=== PATIENT | male | born 1960 | race Caucasian/White ===

== ENCOUNTER 2016-10-29 01:19 | Emergency (ER) | payer OTHER ==
[~2016-10-29] VITALS: Ht 170.2 cm; Wt 113.4 kg
[~2016-10-29 01:19] MED LIST: HYDROCODONE-AP1 EAC6 PO; NOHOMEMEDICATIONS
== END 2016-10-29 04:51 | disposition home or self-care (01) ==
LOC: ER 01:19
DX: G89.29 Other chronic pain (principal); M25.551 Pain in right hip; I10 Essential (primary) hypertension; K74.69 Other cirrhosis of liver; J44.9 Chronic obstructive pulmonary disease, unspecified; Z88.5 Allergy status to narcotic agent; F17.210 Nicotine dependence, cigarettes, uncomplicated; F10.99 Alcohol use, unspecified with unspecified alcohol-induced disorder

== ENCOUNTER 2021-05-15 01:02 | Inpatient (IN) | payer OTHER ==
[2021-05-15] VITALS (8 sets, daily range): BP systolic 15–184; BP diastolic 64–110
[~2021-05-15] VITALS: Ht 172.7 cm; Wt 88.5 kg
--- NOTE | ~2021-05-15 | EMS ---
[address] [address] EMS Patient Care Report Name: JAVI REYES Room #: 201-P ADM IN M.R.#: [id number] Admission: 05/15/21 Attend Phys: Ernestina Alexander MD Discharge: Date of : 64 Report #: [id number] THIS REPORT FOR: //name// Report Transmitted: 05/15/2021 04:50 EMS Care Summary [place], [place]/[facility] Incident [id number] @ 05/15/2021 00:23 Incident Location [address] [place] [id number] Patient AMY CALDWELL Male, 60 Years 1960 Patient Address [address] [place] [address] Patient History Other,Congestive Heart Failure (CHF),Chronic Obstructive Pulmonary Disease (COPD), Patient Allergies No known allergies, Patient Medications None Reported, Chief Complaint SHORTNESS OF BREATH Disposition Transported Lights/[place] Dispatch Reason EMS Special Service Transported To [place] [facility] Narrative PT SITTING ON PORCH WITH P42 ALERT ORIENTED COMPLANING OF SHORTNESS OF BREATH FOR THE LAST 2 WEEKS, PROGRESSSIELY GETTING WORSE. PT ALSO COMPLAINING OF ABDOMINAL DISTENSION ET RIGIDITY WHICH HAS ALSO BEEN GOING ON ET GETTING [address] [address] EMS Patient Care Report Name: JAVI REYES Room #: 201-P [facility] IN Emi#: [id number] Admission: 05/15/21 Attend Phys: Ernestina Alexander MD Discharge: Date of : 64 Report #: [id number] PROGRESSIVELY WORSE IN THE LAST TWO WEEKS. PT STATES TWO WEEKS AGO HE STOPPED TAKING ALL OF HIS MEDICINES. PT UNABLE TO SAY WHY HE STOPPED ALL HIS MEDS. PT SPEAKING IN 2-3 WORD DYSPNEA. PT LUNGS WHEEZYING. A&A TX ADMINISTERED. O2 SATS IMPROVE WITH OXYGEN VIA TREATEMT. IV ESTABLISHED ENROUTE. ON ARRIVAL CARE ET REPORT TO RN. Initial Vitals @00:54P: 120,R: 22,BP: 200/100,Pain: 6/10,GCS: 15,SpO2: 90,Revised Trauma: 12, @00:55P: 124,R: 24,BP: 224/92,Pain: 6/10,GCS: 15,SpO2: 100,Revised Trauma: 12, Assessments @00:35MENTAL:No Abnormalities,SKIN:No Abnormalities,HEENT:Head/Face: No Abnormalities,Eyes: No Abnormalities,Neck/Airway: No Abnormalities,LUNG SOUNDS:Right Lower: Distension,Right Upper: Distension,Left Upper: Distension,Left Upper: Other,Left Lower: Other,Right Upper: Other,Left Lower: Distension,Right Lower: Other,ABDOMEN:Right Lower: Distension,Right Upper: Distension,Left Upper: Distension,Left Upper: Other,Left Lower: Other,Right Upper: Other,Left Lower: Distension,Right Lower: Other,PELVIS//GI:No Abnormalities,EXTREMITIES:Left Leg: Edema,Right Leg: Edema,Left Arm: No Abnormalities,Right Arm: No Abnormalities,PULSE:NEURO:No Abnormalities, Impression Chronic Obstructive Pulmonary Disease (COPD) Timeline 00:22,Call Received 00:22,Dispatch Notified 00:23,Dispatched 00:25,En Route 00:34,On Scene 00:35,At Patient 00:45,Depart Scene 00:54,BP: 200/100 M,PULSE: 120,RR: 22 R,SPO2: 90 Ox,ETCO2: ,BG: ,PAIN: 6,GCS: 15, 00:55,BP: 224/92 M,PULSE: 124,RR: 24 R,SPO2: 100 Ox,ETCO2: ,BG: ,PAIN: 6,GCS: 15, 00:56,At Destination 01:18,Call Closed Disclaimer v1.1 Copyright 2020 [employer] This EMS Care Summary contains data elements from the applicable legal record (which may be displayed differently). It is designed to provide pertinent information for the following purposes: continuity of care, clinical quality, and state data reporting. The complete legal record [place] [address] EMS Patient Care Report Name: AMYJAVI PRESLEYHRIE Room #: 201-P ADM IN M.R.#: [id number] Admission: 05/15/21 Attend Phys: Ernestina Alexander MD Discharge: Date of : 64 Report #: [id number] and administrators of the receiving hospital in [facility]'s Patient Tracker. All data is provided "as is."
[2021-05-15 01:31] LABS: ABSOLUTE NEUTROPHILS 4.4 thou/uL (1.4-8.2); BASOPHILS 1.1 % (0.0-2.0); EOSINOPHILS 2.5 % (0.0-3.0); HEMATOCRIT 30.5 % (42.0-52.0); HEMOGLOBIN 9.2 gm/dL (14.0-18.0); LYMPHOCYTES 7.8 % (24.0-44.0); MCH 21.3 pg (26.0-34.0); MCHC 30.3 g/dL (28.0-37.0); MCV 70.3 fL (80.0-100.0); MONOCYTES 13.4 % (1.0-8.0); PLATELET COUNT 308 thou/uL (150-400); POLYS 75.2 % (36.0-66.0); RBC 4.34 mil/uL (4.50-6.00); RDW 21.1 % (10.5-14.5); WBC 5.9 thou/uL (4.0-11.0)
[2021-05-15 01:34] LABS: CALCIUM 8.4 mg/dL (8.5-10.1); CREATININE 0.9 mg/dL (0.7-1.3); POTASSIUM 3.5 mmol/L (3.5-5.1)
[2021-05-15 01:44] LABS: ALBUMIN 2.6 g/dL (3.4-5.0); TOTAL BILIRUBIN 0.5 mg/dL (0.2-1.0); TOTAL PROTEIN 7.3 g/dL (6.4-8.2)
[2021-05-15 01:54] LABS: URINE BILIRUBIN NEGATIVE (Negative); URINE BLOOD TRACE (Negative); URINE CLARITY CLEAR; URINE COLOR YELLOW; URINE GLUCOSE-RANDOM* NEGATIVE (Negative); URINE KETONES NEGATIVE (Negative); URINE LEUKOCYTES-REFLEX NEGATIVE (Negative); URINE NITRITE-REFLEX NEGATIVE (Negative); URINE PROTEIN (DIPSTICK) 3+ (Negative); URINE SPECIFIC GRAVITY 1.025 (1.005-1.035); URINE UROBILINOGEN 0.2 E.U./dl (0.2-1.0)
[2021-05-15] MEDS ORDERED: IPRAT-ALBUT 0.5-3 ML INH (02:16)
[2021-05-15] MEDS ORDERED: CARVEDILOL12.5 MG PO (02:17)
[2021-05-15] MEDS ORDERED: PROAIR HFA8.5 GM INH (02:17)
[2021-05-15] MEDS ORDERED: GLIPIZIDE 10 MG10 MG PO (02:18)
[2021-05-15] MEDS ORDERED: LISINOPRIL10 MG PO (02:18)
[2021-05-15] MEDS ORDERED: PROTONIX40 M2 PO (02:19)
[2021-05-15] MEDS ORDERED: SPIRONOLACTONE100 M1 PO (02:19)
[2021-05-15] MEDS ORDERED: AMLODIPINE BESY10 MG PO (02:19)
[2021-05-15] MEDS ORDERED: LIPITOR 40 MG T40 M1 PO (02:19)
[2021-05-15] MEDS ORDERED: FUROSEMIDE 40 M40 M1 PO (02:19)
[2021-05-15] MEDS ORDERED: GABAPENTIN 100100 MG PO (02:19)
[2021-05-15 03:02] LABS: SQUAMOUS 4-10 Moderate /LPF (0-3)
[2021-05-15 03:03] LABS: BACTERIA-REFLEX 1-9 Few /HPF (None Seen); CELLULAR CASTS 0-3 Few /LPF (None Seen); CRYSTALS None Seen /LPF (None Seen); HYALINE CASTS 0-3 Few /LPF (None Seen); MUCUS 0-3 Light strn/LPF (None Seen); URINE RBC 1-2 Rare /HPF (NONE SEEN); URINE WBC-REFLEX None Seen /HPF (0-5)
[2021-05-15 04:44] LABS: BE(vivo) -3.2 mmol/L (-2 to +3); HCO3 21.9 mmol/L (22.0-26.0); PCO2 39.5 mmHg (35.0-45.0); PO2 133.8 mmHg (80.0-100.0); pH 7.361 (7.360-7.450); sO2 98.6 % (92.0-98.0)
--- NOTE | 2021-05-15 05:29 | NUR ---
Pt was an ER admit who presented with SOA, ascites and hypertenion. Pt is stable upon arrival to the floor. Admission assessment and documentation completed. Currently denies pain. Scheduled meds administered to pt. Patient reports last drink to be 05/14. Pt is stable and drowsy, alfaro in place. Continue to monitor. No further needs at this time.
[2021-05-15 06:38] LABS: INR 1.12; PROTIME 12.1 Seconds (10.5-12.1)
--- NOTE | 2021-05-15 07:18 | EKG ---
[address] [place] [address] ELECTROCARDIOGRAM REPORT Name: JAVI REYES Room #: 201-P ADM IN M.R.#: [id number] Admission: 05/15/21 Attend Phys: Ernestina Alexander MD Discharge: Date of : 64 Report #: [id number] [facility] ED Test Date: 2021-05-15 Test Time: 01:09:09 Pat Name: JAVI REYES Department: Room: 201 Gender: M Operations Plant Attendant: MPARK : 1960 Requested By: Zane Martinez Order Number: [id number] MD: Sebastian Carr Measurements Intervals [place] Rate: 119 P: 57 WY: 140 QRS: 59 QRSD: 99 T: 50 QT: 356 QTc: 501 Interpretive Statements Sinus tachycardia Probable left atrial enlargement Compared to ECG 01/31/2016 22:58:35 T-wave abnormality no longer present Possible ischemia no longer present Electronically Signed On 05-15-2021 7:17:43 CDT by Sebastian Carr [email or web address] <ELECTRONICALLY SIGNED> By: Sebastian Carr MD, [facility] 05/15/21 07 8 010 Sebastian Carr MD, FACC /EPI
--- NOTE | 2021-05-15 15:37 | 2DMMODE ---
[facility] [place] [address] 2 D/M-MODE ECHOCARDIOGRAM Name: JAVI REYES Room #: 201-P ADM IN M.R.#: [id number] Admission: 05/15/21 Attend Phys: Ernestina Alexander MD Discharge: Date of : 64 Report #: [id number] THIS REPORT FOR: cc: Mary Giron MD, Jinming MD Lundgren, Craig H. MD [facility] ~ APPROVED REPORT Study performed: 05/15/2021 14:19:21 EXAM: Comprehensive 2D, Doppler, and color-flow Echocardiogram Patient Location: Bedside Room #: 201 Status: routine BSA: 2.43 HR: 75 bpm BP: 176/91 mmHg Rhythm: NSR Other Information Study Quality: Good Indications Congestive Heart Failure COPD Diabetes Dyspnea Hypertension/HDD Morbid obesity 2D Dimensions RVDd: 45.88 mm IVSd: 15.79 (7-11mm) LVOT Diam: 24.49 (18-24mm) LVDd: 48.67 mm PWd: 14.60 (7-11mm) Ascending Ao: 28.78 (22-36mm) LVDs: 31.86 (25-40mm) Left Atrium: 38.70 (27-40mm) Aortic Root: 33.79 mm IVC: 23.00 mm Volumes Left Atrial Volume (Systole) Single Plane 4CH: 78.74 mL Single Plane 2CH: 106.27 mL LA ESV Index: 43.00 mL/m2 [facility] [address] [place] [address] 2 D/M-MODE ECHOCARDIOGRAM Name: JAVI REYES Room #: 201-P ADM IN M.R.#: [id number] Admission: 05/15/21 Attend Phys: Odalis Junior Discharge: Date of : 64 Report #: [id number] Aortic Valve AoV Peak Toy.: 1.75 m/s AO Peak Gr.: 12.27 mmHg LVOT Max P.13 mmHg LVOT Max V: 1.02 m/s ROMERO Vmax: 2.73 cm2 Mitral Valve E/A Ratio: 1.2 MV Decel. Time: 251.97 ms MV E Max Toy.: 1.26 m/s MV A Toy.: 1.09 m/s MV PHT: 73.07 ms IVRT: 110.73 ms Pulmonary Valve PV Peak Toy.: 1.15 m/s PV Peak Gr.: 5.30 mmHg Pulmonary Vein P Vein S: 0.62 m/s P Vein A: 0.25 m/s P Vein D: 0.60 m/s P Vein A Dur.: 87.7 msec P Vein S/D Ratio: 1.03 Tricuspid Valve TR Peak Toy.: 2.19 m/s TR Peak Gr.: 19.13 mmHg PA Pressure: 29.00 mmHg Left Ventricle The left ventricle is normal size. There is normal LV segmental wall motion. Mild concentric left ventricular hypertrophy. The left ventricular systolic function is normal. The left ventricular ejection fraction is within the normal range. LVEF is 60-65%. Moderate diastolic dysfunction Right Ventricle Right ventricle is dilated. The right ventricular systolic function is normal. Atria Left atrium is dilated. Right atrium is dilated. Aortic Valve The aortic valve is normal in structure. No aortic regurgitation is present. There is no aortic valvular stenosis. Mitral Valve [facility] [address] [place] [address] 2 D/M-MODE ECHOCARDIOGRAM Name: JAVI REYES Room #: 201-P ADM IN M.R.#: [id number] Admission: 05/15/21 Attend Phys: Odalis Junior Discharge: Date of : 64 Report #: [id number] The mitral valve is normal in structure. Mild mitral regurgitation. No evidence of mitral valve stenosis. Tricuspid Valve The tricuspid valve is normal in structure. Pulmonary artery systolic pressure could not be reliably ascertained There is trace tricuspid regurgitation. Pulmonic Valve The pulmonary valve is normal in structure. Trace to mild pulmonic regurgitation. Great Vessels The aortic root is normal in size. IVC is dilated and collapses >50% with inspiration. Pericardium There is no pericardial effusion. <Conclusion> The left ventricular systolic function is normal. There is normal LV segmental wall motion. Mild concentric left ventricular hypertrophy. LVEF is 60-65%. Moderate diastolic dysfunction The aortic valve is normal in structure. No aortic regurgitation or stenosis The mitral valve is normal in structure. Mild mitral regurgitation. Pulmonary artery pressure could not be reliably ascertained. No pericardial effusion <ELECTRONICALLY SIGNED> By: Duncan Rodriguez MD, FACC 05/15/21 1537 [id number] Duncan Rodriguez MD, FACC /INF
--- NOTE | 2021-05-15 18:00 | NUR ---
ASSESSMENT CHARTED - MEDS PER OCT - PT STARTED ON LASIX THIS SHIFT - ORDERED HYRALAZINE FOR ELEVATED BP - NOT GIVEN DUE TO WHEN PATIENT HAD SCHEDULED MEDS BP CAME BACK DOWN. PT GIVEN ALBUMIN X 1 ORDERED - LORAZEPAM GIVEN THIS AM POST PARACENTISIS - 17 LITERS REMOVED FROM ABDOMEN. PT STATED HIS BELLY FELT SOMEWHAT BETTER POST PROCEDURE. SSEEN BY CARDIOLOGY / GI TODAY - DOPPLER AND ULTRASOUND COMPLETED ORDERED. ACCUCHECKS CHARTED - PT WITH CO'S OF PAIN WHEN BACK TO CHECK ON PATIENT PT SLEEPING SO MEDICATION NOT GIVEN. MAURI DIET AND FLUIDS - ON 1200 CC FLUID RESTRICTION. PT SLEEPING AT THE PRESENT TIME .
[2021-05-16] VITALS (7 sets, daily range): BP systolic 110–159; BP diastolic 50–84
--- NOTE | 2021-05-16 05:09 | NUR ---
Assumed pt care at 1900. Pt is stable. Pt is drowsy upon arrival to room but responds to voice. Verbalizes pain. Pain med administered upon request. Assessment completed and documented. Scheduled meds administered to pt. No acute events through the night. Continue to monitor. No further needs at this time.
[2021-05-16 05:54] LABS: HEMATOCRIT 30.2 % (42.0-52.0); HEMOGLOBIN 9.2 gm/dL (14.0-18.0); MCH 21.8 pg (26.0-34.0); MCHC 30.6 g/dL (28.0-37.0); MCV 71.2 fL (80.0-100.0); RBC 4.23 mil/uL (4.50-6.00); RDW 20.7 % (10.5-14.5); WBC 6.9 thou/uL (4.0-11.0)
[2021-05-16 06:08] LABS: INR 1.1; PROTIME 11.9 Seconds (10.5-12.1)
[2021-05-16 06:10] LABS: ALBUMIN 2.7 g/dL (3.4-5.0); CALCIUM 8.1 mg/dL (8.5-10.1); POTASSIUM 3.4 mmol/L (3.5-5.1); TOTAL BILIRUBIN 0.8 mg/dL (0.2-1.0); TOTAL PROTEIN 6.3 g/dL (6.4-8.2)
[2021-05-16 06:22] LABS: % SATURATION 8 % (20-39); IRON 23 ug/dL (65-175); TIBC 303 ug/dL (250-450)
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
--- NOTE | 2021-05-16 18:52 | NUR ---
ASSESSMENT CHARTED - MEDS PER [facility] - MAURI DIET AND FLUIDS WITH NO CO'S OF NAUSEA. PT GIVEN FENTANYL FOR PAIN WITH GOOD RELIEF - PT SLEEPING POST DOSE. ACCUCHECKS CHARTED - PT GIVEN PO K+ THIS AM ORDERED. CONSULT PLACED FOR PALATIVE CARE TO SEE PATIENT. PT HAS SPENT MOST OF THE DAY SLEEPING. NO CO'S AT THE PRESENT TIME.
[2021-05-17 03:01] VITALS: BP 117/67
[2021-05-17 09:21] VITALS: BP 137/69
--- NOTE | 2021-05-17 09:25 | NUR ---
PT RESTING ON AND OFF THRU THE NOC, PRN PAIN MED GIVEN FOR C/O LEG PAIN, TURNS SELF IN BED, SAVAGE CON'T TO DRAIN, 1200 FR PT TOLERATING ICE CHIPS, VSS, REPORT GIVEN TO NEXT SHIFT WILL CON'T TO MONITOR PER PPOC.
[2021-05-17 12:00] VITALS: BP 153/90
--- NOTE | 2021-05-17 14:08 | NUR ---
ASSUMED CARE OF PT AT 0700. PT IS RETSING IN BED AT SHIFT CHANGE. PT IS CALM AND COOPERATIVE AT TIE OF ASSESSMENT AND MEDICATION ADMINISTRATION. PT IS HAVING 10/10 PAIN IN LEFT LOWER EXTREMITY. FENTANYL GIVEN PRN FOR PAIN AND SEEMS TO HELP PTS PAIN QUITE A BIT. PT IS CURRENTLY SLEEPING IN BED AT THIS TIME WILL CONTINUE TO MONITOR.
--- NOTE | 2021-05-17 14:49 | NUR ---
FAXED REFERRAL TO [facility]. CONTACTED JUANI/LIAISON TO DISCUSS THAT PATIENT WAS [place] AND WANTED TO GO HOME RENAN W/COMFORT OR PALLIATIVE CARE. SHE WAS GOING TO REVIEW WITH PARTY SUPPLY SPECIALIST AND GET BACK WITH US. FAXED REFERRAL TO [facility]. SPOKE TO HELEN HERBERT/LIAISON. REQUESTED A GIP VS HOME W/HOSPICE EVALUATION. MARYAM JENKINS TO OBTAIN AN EVAL & TREAT ORDER FROM THE ATTENDING PHYSICIAN AND FAX ORDER TO [facility] SOON AVAILABLE. [facility] P [phone]; FAX [phone]; M [phone] [facility] P [phone]; FAX [phone]; M [phone] HELEN Pena
[2021-05-17 19:30] VITALS: BP 158/85
--- NOTE | 2021-05-18 02:52 | NUR ---
PT IS ALERT AND OREINTED X4. HOSPICE CAME LAST NIGHT AND SEEN PT. COMFORT MEDS PUT IN COMPUTER FOR PT. ABDOMEN IS ROUND AND FIRM VERY DISTENDED. BOWEL SOUNDS HYPOACTIVE. LORAZEPAM GIVEN AND PAIN MEDS GIVEN. PT HAS BILAERAL LOWER LEG CELULITIS. LEGS ARE RED AND WARM ON ANTIBIOTICS. ONGOING HOSPICE CARE AT THIS TIME. CALL LIGHT TITA MOTTA.
[2021-05-18 03:50] VITALS: BP 129/67
[2021-05-18 07:10] VITALS: BP 149/81
--- NOTE | 2021-05-18 10:25 | NUR ---
ASSUMED CARE OF PT AT 0700. PT IS RESTING IN BED AT TIME OF SHIFT CHANGE. PT IS REQUESTING PAIN MEDICAITON UPPON ASSESSMENT. PT REPORTING 10/10 PAIN IN LLE. PT WAS GIVEN 20MCG OF FENTANYL IV FOR PAIN. PT REPORTS LATER TO THIS NURSE THAT PAIN HAS IMPORVED. PT IS COMPLIANT WITH MEDICAITONS AND ASSESSMENT. WILL CONTINUE TO MONITOR.
[2021-05-18 11:27] VITALS: BP 124/59
[2021-05-18 13:31] LABS: HEMATOCRIT 31.2 % (42.0-52.0); HEMOGLOBIN 9.3 gm/dL (14.0-18.0); MCH 21.3 pg (26.0-34.0); MCHC 29.9 g/dL (28.0-37.0); MCV 71.2 fL (80.0-100.0); RBC 4.38 mil/uL (4.50-6.00); RDW 20.7 % (10.5-14.5); WBC 8.7 thou/uL (4.0-11.0)
[2021-05-18 13:37] LABS: INR 1.06; PROTIME 11.5 Seconds (10.5-12.1)
[2021-05-18 13:38] LABS: CALCIUM 8.7 mg/dL (8.5-10.1); CREATININE 1.1 mg/dL (0.7-1.3); POTASSIUM 3.7 mmol/L (3.5-5.1)
[2021-05-18 15:00] VITALS: BP 138/76
[2021-05-18 19:36] VITALS: BP 145/61
[2021-05-19 00:14] VITALS: BP 136/66
[2021-05-19 03:50] VITALS: BP 116/59
--- NOTE | 2021-05-19 06:22 | NUR ---
PT RESTING QUIETLY IN ROOM REQUESTING PRN MEDS NEEDED FOR PAIN AND ANXIETY, VSS, TURNS SELF IN BED, UP TO BSC FOR BM THIS AM, WILL CON'T TO MONITOR PER PPOC.
[2021-05-19 07:57] VITALS: BP 139/72
== END 2021-05-19 09:41 | disposition hospice, inpatient (51) | DRG 432 ==
LOC: ER 01:02 → EROBS 03:33 → 2N 04:08
PROVIDERS: Emergency Medicine; Internal Medicine; Nurse Practitioner; Nurse Practitioner Family; ADMIT Hospitalist; ATTEND Hospitalist
PROC: 0W9G3ZZ Drainage of Peritoneal Cavity, Percutaneous Approach (ICD-10-PCS; principal; 2021-05-15)
PROC: 0W9G3ZZ Drainage of Peritoneal Cavity, Percutaneous Approach (ICD-10-PCS; 2021-05-19)
DX: K70.40 Alcoholic hepatic failure without coma (principal); J96.21 Acute and chronic respiratory failure with hypoxia; E43 Unspecified severe protein-calorie malnutrition; I50.30 Unspecified diastolic (congestive) heart failure; L03.116 Cellulitis of left lower limb; L03.115 Cellulitis of right lower limb; I85.00 Esophageal varices without bleeding; J44.9 Chronic obstructive pulmonary disease, unspecified; E11.9 Type 2 diabetes mellitus without complications; E78.5 Hyperlipidemia, unspecified; M16.10 Unilateral primary osteoarthritis, unspecified hip; F17.210 Nicotine dependence, cigarettes, uncomplicated; I16.0 Hypertensive urgency; K70.31 Alcoholic cirrhosis of liver with ascites; K21.9 Gastro-esophageal reflux disease without esophagitis; E66.01 Morbid (severe) obesity due to excess calories; F10.10 Alcohol abuse, uncomplicated; D64.9 Anemia, unspecified; I11.0 Hypertensive heart disease with heart failure; G89.29 Other chronic pain; Z66 Do not resuscitate; K80.20 Calculus of gallbladder without cholecystitis without obstruction; E87.6 Hypokalemia; Z51.5 Encounter for palliative care; Z91.14 Patient's other noncompliance with medication regimen; Z68.29 Body mass index [BMI] 29.0-29.9, adult; Z88.6 Allergy status to analgesic agent; Z71.6 Tobacco abuse counseling; Z71.41 Alcohol abuse counseling and surveillance of alcoholic; Z20.822 Contact with and (suspected) exposure to COVID-19
CPT/HCPCS: 10081; 10797

== ENCOUNTER 2021-05-19 09:40 | Inpatient (IN) | payer OTHER ==
[~2021-05-19] VITALS: Ht 172.7 cm; Wt 103.0 kg
[~2021-05-19 09:40] MED LIST changes: +AMLODIPINE BESY10 MG PO; +CARVEDILOL12.5 MG PO; +FUROSEMIDE 40 M40 M1 PO; +GABAPENTIN 100100 MG PO; +GLIPIZIDE 10 MG10 MG PO; +IPRAT-ALBUT 0.5-3 ML INH; +LIPITOR 40 MG T40 M1 PO; +LISINOPRIL10 MG PO; +PROAIR HFA8.5 GM INH; +PROTONIX40 M2 PO; +SPIRONOLACTONE100 M1 PO
--- NOTE | 2021-05-19 09:52 | NUR ---
Per patient request and MD order patient was assessed and accepted to [facility] on 05[facility]18-21. Orders today to discharge from inpatient and re-admit to [facility] in place. [facility] following for current care level needs. Orders to correct current status are now completed.
--- NOTE | 2021-05-19 15:44 | NUR ---
Patient transitioned to inpatient [facility] hospice over weekend. Patient rec thoranthesis this am. When patient returned to room he is asking to eat. he is sitting up in bed eating. Patient reports he is aware of services of hospice "im dying." Patient aware at [facility] and reports month is MAY. He is aware he is rec hospice services. Asked patient if he would want his mom and brother to know he is receiving hospice and he reports he would want. Left message with girlfriend to call casemgt. No numbers to mom/brother and patient does not know the numbers. Unaware of intake process with [facility] of whom was present. Casemgt following.
[2021-05-19 16:09] VITALS: BP 111/63
--- NOTE | 2021-05-20 03:57 | NUR ---
ASSUME CARE 1900. PT/VITALS STABLE. INTERMITTENT LEFT FOOT PAIN WITH MODERATE RELIEF FROM MORPHINE. ABDOMEN FIRM/DISTENDED. INTERMITENT PARACENTHESIS DONE WHILE IN HOSPITAL. NO DISTRESS NOTED THROUGH THE SHIFT. A/O X 4, FOLLOWS COMMANDS AND ANSWERS QUESTIONS APPROPRIATELY. PLAN IS A HOSPICE PLACEMENT. WILL CONTINUE TO MONITOR AND FOLLOW WITH POC
[2021-05-20 07:15] VITALS: BP 131/67
[2021-05-20 11:56] VITALS: BP 156/95
--- NOTE | 2021-05-20 14:04 | NUR ---
Spoke with s/o Narda who called unit. She reports to RN that patient has a hernia that needs to be addressed. Discussed patient on services with hospice. Narda did not know patient on hospice services. she reports her cell phone fell in toilet and she is using patients cell phone [phone]. She reports patient would not agree to hospice services. Requested [facility] hosp[facility] SW reach out to Narda to review services. Also sp with [facility] and reports WHEELABRATOR OPERATOR of [facility] does not believe patient meets criteria for GIP. They plan to have document review attorney. Narda plans to visit today and request casemgt at time of visit to discuss. Updated patient who reports can speak freely with Narda when she arrives in room.
--- NOTE | 2021-05-20 16:54 | NUR ---
ASSESSMENT CHARTED - PT GIVEN PAIN MEDS Q 4 HOURS HE HAS REQUESTED. MAURI DIET AND FLUIDS, NO CO'S OF NAUSEA. HOSPICE NURSE INTO SEE PATIENT. GIRLFRIEND CALLED AND ASKED FOR INFORMATION IN REGARDS TO PATIENT - ALLOWED HER TO SPEAK WITH SWS IN REGARDS TO PATIENT STATUS. PT HAS ONCE AGIAN VOICED THAT HE WISHED TO BE A HOSPICE PATIENT WITH GIRLFRIEND PRESENT SHE DID NOT BLEIEVE THAT HE WOULD WANT THIS. SWS CONTINUE TO CO-ORDINATE CARE IN HOSPITAL / HOSPICE AND D/C PLANNING.
[2021-05-20 23:30] VITALS: BP 148/74
[2021-05-21 07:13] VITALS: BP 150/95
--- NOTE | 2021-05-21 07:29 | NUR ---
PT RESTING ON AND OFF, THRU THE NOC, REPOSITIONS SELF IN BED, PRN MEDS GIVEN CHARTED, PAIN IN LE FROM CELULITIS, REMINS ON 4L/NC, AND SAVAGE DRAING YELLOW URINE, REPORT GIVEN TO NEXT SHIFT TO CON'T PPOC.
[2021-05-21 11:07] VITALS: BP 136/70
[2021-05-21 13:18] VITALS: BP 136/70
--- NOTE | 2021-05-21 14:12 | NUR ---
Visited with patient and s/o at bedside last evening. Patient discussed hospice services with Narda present. He reports he is aware of hospice and diagnosis of ES Liver. Narda questioned if can be reversed and discussed cannot he will cont to need paracenthesis for comfort. Phys does not feel patient meets criteria for GIP. Discussed with [facility]. Plan for patient to catheter placed for drainage of abdomen. Plan for patient to dc home with [facility]. Narda is aware of plan and in agreement with plan. Patient last evening reported he did not want his family mother, brother or sister to know of him rec hospice. He stated with narda present. SW with [facility] visited today. Aware plan home today. Faxed orders and discussed dc plan for home with Sw and patient. They plan delivery of home oxygen today. IR reports cannot place chatherter until am. Left Narda a message of dc tomorrow. Updated patient and hospice. Tenative plan for home with hospice in am.
[2021-05-21 16:27] LABS: ABSOLUTE NEUTROPHILS 4.5 thou/uL (1.4-8.2); BASOPHILS 1.1 % (0.0-2.0); EOSINOPHILS 3.9 % (0.0-3.0); HEMATOCRIT 34.5 % (42.0-52.0); HEMOGLOBIN 10.3 gm/dL (14.0-18.0); LYMPHOCYTES 7.5 % (24.0-44.0); MCH 21.3 pg (26.0-34.0); MCV 71.1 fL (80.0-100.0); MONOCYTES 13.1 % (1.0-8.0); PLATELET COUNT 259 thou/uL (150-400); POLYS 74.4 % (36.0-66.0); RBC 4.86 mil/uL (4.50-6.00); RDW 20.3 % (10.5-14.5)
[2021-05-21 16:42] LABS: POTASSIUM 4.5 mmol/L (3.5-5.1)
[2021-05-21 16:49] LABS: APTT 26.5 Seconds (24.5-32.8); INR 1.04; PROTIME 11.3 Seconds (10.5-12.1)
[2021-05-21 17:22] LABS: ANISOCYTOSIS 2+; MACROCYTES FEW; MICROCYTES 1+
[2021-05-21 17:23] LABS: HYPOCHROMASIA 1+; OVALOCYTES FEW
[2021-05-21 20:02] VITALS: BP 163/107
[2021-05-21 23:31] VITALS: BP 146/90
--- NOTE | 2021-05-22 03:23 | NUR ---
PT IS ALERT AND ORIENTED FORGETFULL AT TIMES. LUNGS CLEAR TO DIMINISHED. ABDOMEN IS ROUND. BOWEL SOUNDS HYPOACTIVE X4. COMPLAINS OF PAIN IN LOWER LEG RATES IT A 10. PAIN MEDS GIVEN PER MAR. AND ANXIETY MEDS GIVEN TOO NEEDED FOR ANXIETY. CELLULITIS OF LOWER LEGS BILAERAL. PT HAS BEEN NPO SINCE MIDNIGHT SUPOSE TOMOROW PLACMENT OF PORAX DRAIN PLACMENET THEN HOME ON HOSPICE IS THE PLAN OF CARE.
[2021-05-22 04:26] VITALS: BP 159/89
[2021-05-22 07:13] VITALS: BP 139/87
--- NOTE | 2021-05-22 15:36 | NUR ---
Patient rec pleurex cath today. Plan home with [facility] today. patient in agreement. Sp with S/O Narda who reports she will transport him home. Sp with Ashlie at [facility] who rec orders. She will assist with delivary of oxygen to home. Faxed orders with confirmation of receipt.
== END 2021-05-22 16:12 | disposition hospice, home (50) | DRG 432 ==
LOC: 2N 09:40
PROVIDERS: Radiology Diagnostic Radiology; ADMIT Hospitalist; ATTEND Hospitalist
PROC: 0W9F30Z Drainage of Abdominal Wall with Drainage Device, Percutaneous Approach (ICD-10-PCS; principal; 2021-05-19)
DX: K70.31 Alcoholic cirrhosis of liver with ascites (principal); E43 Unspecified severe protein-calorie malnutrition; I50.30 Unspecified diastolic (congestive) heart failure; L03.116 Cellulitis of left lower limb; L03.115 Cellulitis of right lower limb; J44.9 Chronic obstructive pulmonary disease, unspecified; F17.210 Nicotine dependence, cigarettes, uncomplicated; M16.10 Unilateral primary osteoarthritis, unspecified hip; G89.29 Other chronic pain; M25.559 Pain in unspecified hip; K72.10 Chronic hepatic failure without coma; E66.01 Morbid (severe) obesity due to excess calories; Z66 Do not resuscitate; I11.0 Hypertensive heart disease with heart failure; F10.10 Alcohol abuse, uncomplicated; Z68.34 Body mass index [BMI] 34.0-34.9, adult; Z51.5 Encounter for palliative care
CPT/HCPCS: 10797

== ENCOUNTER 2021-10-06 13:45 | Inpatient (IN) | payer OTHER ==
[~2021-10-06] VITALS: Ht 170.2 cm; Wt 81.7 kg
--- NOTE | ~2021-10-06 | O ---
[facility] [place] [address] OPERATIVE REPORT Name: JAVI REYES Room #: 170-7 ADM IN M.R.#: [id number] Admission: 10/06/21 Attend Phys: Joselo Quintero MD Discharge: Date of : 64 Report #: [id number] THIS REPORT FOR: cc: Mary Giron MD, Jinming MD Joseph,Todd Okeefe MD ~ DATE OF SERVICE: 10/06/2021 PREOPERATIVE DIAGNOSIS: Incarcerated umbilical hernia. POSTOPERATIVE DIAGNOSIS: Incarcerated, possibly strangulated umbilical hernia. OPERATIVE PROCEDURE DONE: Open repair of incarcerated umbilical hernia, primary repair. OPERATING SURGEON: Todd Jasso MD INDICATIONS FOR THE PROCEDURE: The patient is a 61-year-old male who presented with complaints of acute onset of pain over the umbilical swelling. He has a history of chronic liver disease and cirrhosis. Clinically CT scan showed features of incarcerated umbilical hernia, possibly early strangulation. The patient was advised open repair of the same. The patient showed understanding and agreed to proceed. DESCRIPTION OF PROCEDURE: After explaining to the patient in detail and informed consent was obtained, the patient was identified in the preoperative holding area. The patient was transferred to the operating room and was placed in supine position. Sequential compression devices were placed for DVT prophylaxis. Preoperative antibiotics were given. After induction of anesthesia, the abdomen was prepped and draped in a sterile fashion. Through a supraumbilical transverse incision measuring approximately about 6 cm, the sac was identified. I dissected the sac circumferentially from the umbilical skin, which itself appeared very thinned out. I then continued dissection up to the hernial defect. This had to be extended further by 1.5 cm to both sides. I was finally able to reduce the strangulation. The strangulated segment of the small bowel appeared blackish on initial inspection. However, after keeping it for some time in warm saline, the color improved and the bowel thereafter appeared viable, therefore, I did not resect the bowel. This was gently reduced into the abdominal cavity. Some ascitic fluid was suctioned out. The abdomen was then closed in layers using #1 PDS for the fascia. A few interrupted Prolene sutures were placed on the fascia as well. The 3-0 Vicryl interrupted sutures were placed and the subcutaneous tissue. Skin was closed with 4-0 Monocryl for other incisions. Dermabond was applied. The patient was stable at the end of the procedure. The patient was awoken from anesthesia and was transferred to the recovery room in stable condition. Estimated blood loss was approximately [address] [address] OPERATIVE REPORT Name: JAVI REYES Room #: 170-7 [facility] IN .R.#: [id number] Admission: 10/06/21 Attend Phys: Joselo Quintero MD Discharge: Date of : 64 Report #: [id number] CONDITION: The patient is stable. FLUIDS GIVEN: Per anesthesia notes. SPECIMEN SENT: None. COMPLICATIONS: None. ANESTHESIA: General anesthesia. By: 52 20 Todd Jasso MD /nt
[2021-10-06 13:46] VITALS: BP 172/108
[2021-10-06 14:06] LABS: ABSOLUTE NEUTROPHILS 12.7 thou/uL (1.4-8.2); BASOPHILS 0.2 % (0.0-2.0); EOSINOPHILS 0.1 % (0.0-3.0); HEMOGLOBIN 16.4 gm/dL (14.0-18.0); LYMPHOCYTES 3.7 % (24.0-44.0); MCHC 32.8 g/dL (28.0-37.0); MCV 85.2 fL (80.0-100.0); MONOCYTES 12.8 % (1.0-8.0); PLATELET COUNT 226 thou/uL (150-400); POLYS 83.2 % (36.0-66.0); RBC 5.86 mil/uL (4.50-6.00); RDW 18.2 % (10.5-14.5); WBC 15.2 thou/uL (4.0-11.0)
[2021-10-06 14:06] LABS: URINE BLOOD NEGATIVE (Negative); URINE CLARITY CLEAR; URINE COLOR YELLOW; URINE GLUCOSE-RANDOM* NEGATIVE (Negative); URINE KETONES NEGATIVE (Negative); URINE LEUKOCYTES-REFLEX NEGATIVE (Negative); URINE NITRITE-REFLEX NEGATIVE (Negative); URINE PROTEIN (DIPSTICK) 3+ (Negative); URINE SPECIFIC GRAVITY >= 1.030 (1.005-1.035)
[2021-10-06 14:08] LABS: ICTOTEST (BILI CONFIRMATORY) Negative (Negative); URINE BILIRUBIN NEGATIVE (Negative)
[2021-10-06 14:13] LABS: CREATININE 1.3 mg/dL (0.7-1.3); POTASSIUM 3.7 mmol/L (3.5-5.1)
[2021-10-06 14:35] LABS: ANISOCYTOSIS 2+
[2021-10-06 14:39] LABS: ALBUMIN 3.2 g/dL (3.4-5.0); DIRECT BILIRUBIN 0.3 mg/dL (<0.1-0.2); TOTAL BILIRUBIN 1.2 mg/dL (0.2-1.0)
[2021-10-06 15:55] LABS: APTT 25.1 Seconds (24.5-32.8); INR 1.1; PROTIME 11.9 Seconds (10.5-12.1)
[2021-10-06 18:28] VITALS: BP 139/87
== END 2021-10-07 | disposition hospice, home (50) | DRG 355 ==
LOC: ER 13:45 → EROBS 16:47
PROVIDERS: Emergency Medicine; ADMIT Hospitalist; ATTEND Hospitalist
PROC: 0WQF0ZZ Repair Abdominal Wall, Open Approach (ICD-10-PCS; principal; 2021-10-06)
PROC: 0D9670Z Drainage of Stomach with Drainage Device, Via Natural or Artificial Opening (ICD-10-PCS; principal; 2021-10-06)
DX: K42.0 Umbilical hernia with obstruction, without gangrene (principal); I10 Essential (primary) hypertension; J44.9 Chronic obstructive pulmonary disease, unspecified; F17.210 Nicotine dependence, cigarettes, uncomplicated; K72.10 Chronic hepatic failure without coma; K21.9 Gastro-esophageal reflux disease without esophagitis; E66.01 Morbid (severe) obesity due to excess calories; E11.9 Type 2 diabetes mellitus without complications; K74.60 Unspecified cirrhosis of liver; Z20.822 Contact with and (suspected) exposure to COVID-19; Z88.6 Allergy status to analgesic agent; Z68.34 Body mass index [BMI] 34.0-34.9, adult
CPT/HCPCS: 50101; 50386; 50403; 51390; 56524; 56525; 56526; 56527; 62110; 62900